=== PATIENT | female | born 1990 | race Caucasian/White ===

== ENCOUNTER 2024-04-26 10:40 | Inpatient (IN) | payer OTHER ==
[~2024-04-26 10:40] MED LIST: Bupivacaine 0.25% HCL 30 ML VIAL ONE
[2024-04-26 11:34] VITALS: BMI 25.7
[2024-04-26] MEDS ORDERED: Misoprostol 200 MCG TAB RC PRN (15:15)
[2024-04-26] MEDS ORDERED: hydrALAZINE 20 MG/ML VIAL SLOW IVP PRN (15:15)
[2024-04-26] MEDS ORDERED: Promethazine HCl 25 MG/ML VIAL IM PRN (15:15)
[2024-04-26] MEDS ORDERED: Carboprost 250 MCG/ML AMP IM PRN (15:15)
[2024-04-26] MEDS ORDERED: Oxytocin 30 units/NS 500 ML 500 ML IVPB SCH (15:15)
[2024-04-26] MEDS ORDERED: Diphenoxylate HCl/Atropine Tablet PO PRN (15:15)
[2024-04-26] MEDS ORDERED: Ibuprofen 800 MG TAB PO PRN (15:15)
[2024-04-26] MEDS ORDERED: Methylergonovine 0.2 MG/ML VIAL IM PRN (15:15)
[2024-04-26] MEDS ORDERED: Lidocaine 1% (PF) 30 ML VIAL SC PRN (15:15)
[2024-04-26] MEDS ORDERED: Tranexamic Acid 1,000 MG/10 ML VIAL IVP PRN (15:28)
[2024-04-26] MEDS ORDERED: fentaNYL 50 mcg/mL 1 mL Vial SLOW IVP PRN (15:28)
[2024-04-26 15:43] LABS: Hematocrit 40.4 % (34.9-44.5); Hemoglobin 13.9 g/dL (12.0-15.5); Mean Corpuscular HGB CONC 34.4 g/dL (32.0-36.0); Mean Corpuscular Hemoglobin 33.3 pg (27.0-33.0); Mean Corpuscular Volume 96.9 fL (81.6-98.3); Mean Platelet Volume 10.1 fL (7.4-10.4); Platelet Count 225 10x3/uL (150-450); RBC Distribution Width 12.5 % (11.5-14.5); Red Blood Cell (RBC) Count 4.17 10x6/uL (3.90-5.03); White Blood Cell (WBC) Count 12.9 10x3/uL (3.5-10.5)
[2024-04-26 16:27] LABS: Syphilis Antibody Nonreactive (Nonreactive); Syphilis Antibody Index 0.05 S/CO (<1.00 Non-Reactive)
[2024-04-26 16:28] LABS: HBsAg Index 0.19 S/CO (0-0.99); Hep B Surf Ag - L&D Non-Reactive S/CO (NonReactive)
[2024-04-26] MEDS: Penicillin G 2.5 MILL.units 2.5 MILL.UNITS in Premix 1 BAG IVPB SCH (19:25)
[2024-04-27] MEDS: Zolpidem Tartrate 5 MG TAB PO SCH (00:16)
[2024-04-27] MEDS: Oxytocin 30 units/NS 500 ML 500 ML IV SCH (05:42)
[2024-04-27] MEDS: Lactated Ringer's 1,000 ML IV SCH (09:18)
[2024-04-27] MEDS: fentaNYL/Ropivacaine Epidural 100 ML ONE (14:06)
[2024-04-27] MEDS ORDERED: Moisturizing Cream (Eucerin) 113 GM JAR TOP PRN (14:11)
[2024-04-27] MEDS ORDERED: ePHEDrine Sulfate 50 MG/10 ML VIAL SLOW IVP PRN (14:11)
[2024-04-27] MEDS ORDERED: Promethazine HCl 25 MG/ML VIAL IM PRN (14:11)
[2024-04-27] MEDS ORDERED: Lactated Ringer's 500 ML IV PRN (14:11)
[2024-04-27] MEDS ORDERED: Naloxone HCl 0.4 mg/ml Vial IVP PRN ×2 (14:11)
[2024-04-27] MEDS ORDERED: diphenhydrAMINE 50 MG/ML VIAL IVP PRN (14:11)
[2024-04-27] MEDS ORDERED: Ondansetron PF 4 MG/2 ML Vial IVP PRN (14:11)
[2024-04-27] MEDS ORDERED: ACTIVE EPIDURAL FS SCH (14:15)
[2024-04-27] MEDS ORDERED: fentaNYL 2 mcg/Ropivacaine 0.2% Epidural 100 ML CADD EPIDURAL SCH (14:15)
[2024-04-27] MEDS: Ondansetron PF 4 MG/2 ML Vial IVP PRN (16:12)
[2024-04-27] MEDS ORDERED: Lanolin Ointment 7 GM TUBE TOP PRN (18:42)
[2024-04-27] MEDS ORDERED: Milk Of Magnesia 30 ML UDCUP PO PRN (18:42)
[2024-04-27] MEDS ORDERED: Zolpidem Tartrate 5 MG TAB PO PRN (18:42)
[2024-04-27] MEDS ORDERED: diphenhydrAMINE 25 MG CAP PO PRN (18:42)
[2024-04-27] MEDS ORDERED: Misoprostol 200 MCG TAB VAG PRN (18:42)
[2024-04-27] MEDS ORDERED: hydrALAZINE 20 MG/ML VIAL SLOW IVP PRN (18:42)
[2024-04-27] MEDS ORDERED: Preparation H Ointment 28 GM TUBE PR PRN (18:42)
[2024-04-27] MEDS ORDERED: HYDROcodone/Acetaminophen 5/325 mg Tablet PO PRN (18:42)
[2024-04-27] MEDS ORDERED: Methylergonovine 0.2 MG/ML VIAL IM PRN (18:42)
[2024-04-27] MEDS ORDERED: Bisacodyl 10 MG SUPP PR PRN (18:42)
[2024-04-27] MEDS ORDERED: Benzocaine-Menthol 82.5 ML CAN TOP PRN (18:42)
[2024-04-27] MEDS: Penicillin G Potassium 5 MILL.UNITS in Sodium Chloride 0.9% 100 ML IVPB SCH (21:16)
[2024-04-27] MEDS: Penicillin G Potassium 5 MILL.UNITS VIAL ONE (21:16)
[2024-04-27] MEDS: Boostrix 0.5 ML (Tdap) VIAL (>/=7 yrs of age) IM ONE (21:25)
[2024-04-27] MEDS: Docusate 100 MG CAP PO SCH (22:00)
[2024-04-27] MEDS: Ibuprofen 800 MG TAB PO SCH (22:00)
[2024-04-28] MEDS: Acetaminophen 325 MG TAB PO PRN (04:13)
[2024-04-28 04:55] LABS: Hematocrit 33.6 % (34.9-44.5); Hemoglobin 11.5 g/dL (12.0-15.5); Mean Corpuscular HGB CONC 34.2 g/dL (32.0-36.0); Mean Corpuscular Hemoglobin 33.4 pg (27.0-33.0); Mean Corpuscular Volume 97.7 fL (81.6-98.3); Mean Platelet Volume 9.8 fL (7.4-10.4); Platelet Count 220 10x3/uL (150-450); RBC Distribution Width 12.4 % (11.5-14.5); Red Blood Cell (RBC) Count 3.44 10x6/uL (3.90-5.03); White Blood Cell (WBC) Count 14.5 10x3/uL (3.5-10.5)
[2024-04-28] MEDS: Ferrous Sulfate 325 MG TAB PO SCH (07:18)
[2024-04-28] MEDS: Prenatal Vitamin 1 TAB PO SCH (09:11)
[2024-04-29 07:50] VITALS: BP 122/73; TEMP 97.6
[2024-04-29] MEDS: Polyethylene Glycol 3350 17 GM Packet PO SCH (07:52)
== END 2024-04-29 16:40 | disposition home or self-care (01) | DRG 807 ==
LOC: CSHLD/OP 10:40 → CSHLD 15:01 → CSHPP 04-27 21:00
PROVIDERS: ADMIT Obstetrics & Gynecology; ATTEND Obstetrics & Gynecology
PROC: 10E0XZZ Delivery of Products of Conception, External Approach (ICD-10-PCS; principal; 2024-04-27)
PROC: 0W8NXZZ Division of Female Perineum, External Approach (ICD-10-PCS; 2024-04-27)
DX: O24.420 Gestational diabetes mellitus in childbirth, diet controlled (principal); Z37.0 Single live birth; Z3A.39 39 weeks gestation of pregnancy; O99.824 Streptococcus B carrier state complicating childbirth; O76 Abnormality in fetal heart rate and rhythm complicating labor and delivery
CPT/HCPCS: 36415; 51701; 51702; 85027; 86780; 86850; 86900; 86901; 87340; 99285; J0665; J2405; J2540; J2590; J7120